=== PATIENT | male | born 1970 | race Caucasian/White ===

== ENCOUNTER 2019-05-13 19:39 | Emergency (ER) | payer SELFPAY ==
[2019-05-13 19:41] VITALS: BP 156/66; PULSE 84; RESP 14; TEMP 36.6; O2SAT 99
--- NOTE | 2019-05-13 19:46 | ED.DENTAL ---
HPI - Dental/Oral <Nancy Jose PA-C - Last Filed: 05/13/19 20:53> General Chief complaint: Dental/Oral Stated complaint: BROKEN TOOTH Time Seen by Provider: 05/13/19 19:46 Source: patient Mode of arrival: ambulatory Limitations: no limitations History of Present Illness HPI Narrative: This 48-year-old male comes in due to concern for dental abscess/infection. He states he has had a broken to ooze right upper for a long time, but started having a lot of pain and swelling/tenderness that he can now feel in the jaw 2 days ago. He has a sour taste around the area. He denies any fever. Denies any upper respiratory symptoms or earache. He denies any other complaints on systems review. He has been taking ibuprofen every 8 hours. He tried a [place] which took the edge off a little bit, thinks that might help at night. He does not have a local PCP or dentist Related Data Previous Rx's Medication Instructions Recorded amoxicillin 500 mg PO Q8H #21 cap 05/13/19 hydrocodone-acetaminophen [[place]] 2 tab PO BEDTIME PRN #4 tab 05/13/19 Allergies Allergy/AdvReac Type Severity Reaction Status Date / Time No Known Drug Allergies Allergy Verified 05/13/19 19:44 Review of Systems <Nancy Jose PA-C - Last Filed: 05/13/19 20:53> Review of Systems ROS Unobtainable: All systems reviewed & are unremarkable except as noted in HPI and below PFSH <Nancy Jose PA-C - Last Filed: 05/13/19 20:53> Medical History (Updated 05/13/19 @ 20:13 by Nancy Jose PA-C) No chronic problems (Chronic) Surgical History (Updated 05/13/19 @ 20:13 by Nancy Jose PA-C) No history of previous surgery (Chronic) Social History Smoking Status: Current every day smoker Social History Smoking Status: Current every day smoker Exam <Nancy Jose PA-C - Last Filed: 05/13/19 20:53> Narrative Exam Narrative: GENERAL APPEARANCE: Patient sitting comfortably, in no distress. EYES: PERRL, EOMI. EARS: Normal auditory canals, TMS intact with normal light reflexes. ORAL CAVITY: Right upper premolar is fractured, there is some surrounding erythema and tenderness in the surrounding gum tissue as well as some pulp exposure. No fluctuance or circumscribed edema. THROAT: Clear. NECK/THYROID: Neck supple, full range of motion, no cervical lymphadenopathy. LUNGS: Faint expiratory wheezes, prolonged breath sounds, no cough on exam. HEART: RRR without murmur, nl S1, S2, no S3 or S4. Initial Vital Signs Initial Vital Signs: Vital Signs Temperature 97.9 F 05/13/19 19:41 Pulse Rate 84 05/13/19 19:41 Respiratory Rate 14 05/13/19 19:41 Blood Pressure 156/66 H 05/13/19 19:41 Pulse Oximetry 99 05/13/19 19:41 <Petr Walton MD - Last Filed: 05/14/19 02:43> Initial Vital Signs Initial Vital Signs: Vital Signs Temperature 97.9 F 05/13/19 19:41 Pulse Rate 84 05/13/19 19:41 Respiratory Rate 14 05/13/19 19:41 Blood Pressure 156/66 H 05/13/19 19:41 Pulse Oximetry 99 05/13/19 19:41 Course <Nancy Jose PA-C - Last Filed: 05/13/19 20:53> Vital Signs - 8 hr 05/13/19 19:41 Temperature 97.9 F Pulse Rate 84 Respiratory Rate 14 Blood Pressure 156/66 H Pulse Oximetry 99 <Petr Walton MD - Last Filed: 05/14/19 02:43> Vital Signs - 8 hr 05/13/19 19:41 Temperature 97.9 F Pulse Rate 84 Respiratory Rate 14 Blood Pressure 156/66 H Pulse Oximetry 99 Discharge Plan Departure Patient Disposition: Home Clinical Impression: Dental infection Fracture of tooth Qualifiers: Encounter type: initial encounter Fracture type: closed Qualified Code(s): S02.5XXA - Fracture of tooth (traumatic), initial encounter for closed fracture Discharge Date/Time: 05/13/19 20:11 Interventions: ED Discharge Assessment Last Done: 05/13/19 20:14 Instructions: DI for Dental Pain, Tooth Fracture Activity Restrictions/Additional Instructions: Please continue ibuprofen, 800 mg every 8 hours, which is equivalent to a prescription dose. 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 You can take hydrocodone/acetaminophen at bedtime for the next couple of nights if needed since that has helped with pain a little bit, but do not drive as it can make you sleepy. applications support specialist the antibiotic and start right away. Please call your local dentist on Thursday and let them know you were in the emergency room and need to be seen. Return to emergency department if any acute changes such as severe swelling, or new fever, in the interim Prescriptions: New amoxicillin 500 mg capsule 500 mg PO Q8H Qty: 21 RF: 0 hydrocodone-acetaminophen [[place]] 5-325 mg tablet 2 tab PO BEDTIME PRN (Reason: acute dental pain/infection) Qty: 4 RF: 0 <Petr Walton MD - Last Filed: 05/14/19 02:43> [facility] ED Attending Rashmi Attestation: I was present in the ER at the time this patient's care. I was available for consultation or to see the patient directly. I agree with the assessment and treatment plan.
--- NOTE | 2019-05-13 20:01 | ED_ITS ---
HPI - Dental/Oral <Nancy Jose PA-C - Last Filed: 05/13/19 20:53> General Chief complaint: Dental/Oral Stated complaint: BROKEN TOOTH Time Seen by Provider: 05/13/19 19:46 Source: patient Mode of arrival: ambulatory Limitations: no limitations History of Present Illness HPI Narrative: This 48-year-old male comes in due to concern for dental abscess/infection. He states he has had a broken to ooze right upper for a long time, but started having a lot of pain and swelling/tenderness that he can now feel in the jaw 2 days ago. He has a sour taste around the area. He denies any fever. Denies any upper respiratory symptoms or earache. He denies any other complaints on systems review. He has been taking ibuprofen every 8 hours. He tried a [place] which took the edge off a little bit, thinks that might help at night. He does not have a local PCP or dentist Related Data Previous Rx's Medication Instructions Recorded amoxicillin 500 mg PO Q8H #21 cap 05/13/19 hydrocodone-acetaminophen [[place]] 2 tab PO BEDTIME PRN #4 tab 05/13/19 Allergies Allergy/AdvReac Type Severity Reaction Status Date / Time No Known Drug Allergies Allergy Verified 05/13/19 19:44 Review of Systems <Nancy Jose PA-C - Last Filed: 05/13/19 20:53> Review of Systems ROS Unobtainable: All systems reviewed & are unremarkable except as noted in HPI and below PFSH <Nancy Jose PA-C - Last Filed: 05/13/19 20:53> Medical History (Updated 05/13/19 @ 20:13 by Nancy Jose PA-C) No chronic problems (Chronic) Surgical History (Updated 05/13/19 @ 20:13 by Nancy Jose PA-C) No history of previous surgery (Chronic) Social History Smoking Status: Current every day smoker Social History Smoking Status: Current every day smoker Exam <Nancy Jose PA-C - Last Filed: 05/13/19 20:53> Narrative Exam Narrative: GENERAL APPEARANCE: Patient sitting comfortably, in no distress. EYES: PERRL, EOMI. EARS: Normal auditory canals, TMS intact with normal light reflexes. ORAL CAVITY: Right upper premolar is fractured, there is some surrounding erythema and tenderness in the surrounding gum tissue as well as some pulp exposure. No fluctuance or circumscribed edema. THROAT: Clear. NECK/THYROID: Neck supple, full range of motion, no cervical lymphadenopathy. LUNGS: Faint expiratory wheezes, prolonged breath sounds, no cough on exam. HEART: RRR without murmur, nl S1, S2, no S3 or S4. Initial Vital Signs Initial Vital Signs: Vital Signs Temperature 97.9 F 05/13/19 19:41 Pulse Rate 84 05/13/19 19:41 Respiratory Rate 14 05/13/19 19:41 Blood Pressure 156/66 H 05/13/19 19:41 Pulse Oximetry 99 05/13/19 19:41 <Petr Walton MD - Last Filed: 05/14/19 02:43> Initial Vital Signs Initial Vital Signs: Vital Signs Temperature 97.9 F 05/13/19 19:41 Pulse Rate 84 05/13/19 19:41 Respiratory Rate 14 05/13/19 19:41 Blood Pressure 156/66 H 05/13/19 19:41 Pulse Oximetry 99 05/13/19 19:41 Course <Nancy Jose PA-C - Last Filed: 05/13/19 20:53> Vital Signs - 8 hr 05/13/19 19:41 Temperature 97.9 F Pulse Rate 84 Respiratory Rate 14 Blood Pressure 156/66 H Pulse Oximetry 99 <Petr Walton MD - Last Filed: 05/14/19 02:43> Vital Signs - 8 hr 05/13/19 19:41 Temperature 97.9 F Pulse Rate 84 Respiratory Rate 14 Blood Pressure 156/66 H Pulse Oximetry 99 Discharge Plan Departure Patient Disposition: Home Clinical Impression: Dental infection Fracture of tooth Qualifiers: Encounter type: initial encounter Fracture type: closed Qualified Code(s): S02.5XXA - Fracture of tooth (traumatic), initial encounter for closed fracture Discharge Date/Time: 05/13/19 20:11 Interventions: ED Discharge Assessment Last Done: 05/13/19 20:14 Instructions: DI for Dental Pain, Tooth Fracture Activity Restrictions/Additional Instructions: Please continue ibuprofen, 800 mg every 8 hours, which is equivalent to a prescription dose. 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 You can take hydrocodone/acetaminophen at bedtime for the next couple of nights if needed since that has helped with pain a little bit, but do not drive as it can make you sleepy. pick up the antibiotic and start right away. Please call your local dentist on Thursday and let them know you were in the emergency room and need to be seen. Return to emergency department if any acute changes such as severe swelling, or new fever, in the interim Prescriptions: New amoxicillin 500 mg capsule 500 mg PO Q8H Qty: 21 RF: 0 hydrocodone-acetaminophen [[place]] 5-325 mg tablet 2 tab PO BEDTIME PRN (Reason: acute dental pain/infection) Qty: 4 RF: 0 <Petr Walton MD - Last Filed: 05/14/19 02:43> [facility] ED Attending Rashmi Attestation: I was present in the ER at the time this patient's care. I was available for consultation or to see the patient directly. I agree with the assessment and treatment plan.
== END 2019-05-13 20:11 | disposition home or self-care (01) ==
LOC: ED 20:19
PROVIDERS: Emergency Provider Internal Medicine
DX: K04.7 Periapical abscess without sinus (principal); S02.5XXA Fracture of tooth (traumatic), initial encounter for closed fracture
CPT/HCPCS: 99282; 99283